=== PATIENT | female | born 1975 | race Caucasian/White ===

== ENCOUNTER 2021-08-19 11:22 | Emergency (ER) | payer OTHER ==
[~2021-08-19] VITALS: Ht 167.6 cm; Wt 81.7 kg
[~2021-08-19 11:22] MED LIST: APAP500; CAVAN-FOLATE D1 EACH PO; ESTRACE2 MG PO; HYDROCODON-ACE1 EAC7 PO; LEVOTHYROXIN0.137 M1 PO; LEVOTHYROXINE0.2 M1; LISINOPRIL10 MG; LISINOPRIL20 MG PO; OMEPRAZOLE 20 M20 M1 PO; PHENERGAN 25 MG25 M1 PO; PRILOSEC40 MG PO; PRINZIDE 20-121 EACH PO
[2021-08-19 12:39] LABS: ABSOLUTE NEUTROPHILS 2.3 thou/uL (1.4-8.2); BASOPHILS 0.2 % (0.0-2.0); EOSINOPHILS 2.5 % (0.0-3.0); HEMATOCRIT 38.1 % (37.0-47.0); HEMOGLOBIN 13.6 gm/dL (12.0-15.0); LYMPHOCYTES 45.3 % (24.0-44.0); MCH 30.9 pg (26.0-34.0); MCHC 35.6 g/dL (28.0-37.0); MCV 86.7 fL (80.0-100.0); MONOCYTES 8.6 % (1.0-8.0); PLATELET COUNT 339 thou/uL (150-400); POLYS 43.4 % (36.0-66.0); RDW 12.9 % (10.5-14.5); WBC 5.2 thou/uL (4.0-11.0)
[2021-08-19 12:42] LABS: URINE BILIRUBIN NEGATIVE (Negative); URINE BLOOD NEGATIVE (Negative); URINE CLARITY CLEAR; URINE COLOR YELLOW; URINE GLUCOSE-RANDOM* NEGATIVE (Negative); URINE KETONES NEGATIVE (Negative); URINE LEUKOCYTES-REFLEX NEGATIVE (Negative); URINE NITRITE-REFLEX NEGATIVE (Negative); URINE PROTEIN (DIPSTICK) NEGATIVE (Negative); URINE SPECIFIC GRAVITY >= 1.030 (1.005-1.035); URINE UROBILINOGEN 0.2 E.U./dl (0.2-1.0)
[2021-08-19 13:03] LABS: CALCIUM 8.8 mg/dL (8.5-10.1); CREATININE 0.9 mg/dL (0.6-1.0); POTASSIUM 3.6 mmol/L (3.5-5.1)
[2021-08-19 13:17] LABS: ALBUMIN 3.8 g/dL (3.4-5.0); TOTAL BILIRUBIN 1.6 mg/dL (0.2-1.0); TOTAL PROTEIN 7.4 g/dL (6.4-8.2)
[2021-08-19] MEDS ORDERED: ONDANSETRON ODT4 MG PO (14:33)
[2021-08-19] MEDS ORDERED: APAP W/CODEINE1 TA2 PO (14:33)
[2021-08-19 14:58] VITALS: BP 158/98
--- NOTE | 2021-08-20 13:39 | EKG ---
[address] [place] [address] ELECTROCARDIOGRAM REPORT Name: RONA CARRILLO Room #: DEP Khoa#: [id number] Admission: 08/19/21 Attend Phys: Discharge: 08/19/21 Date of : 75 Report #: [id number] [facility] ED Test Date: 2021-08-19 Test Time: 12:31:56 Pat Name: RONA CARRILLO Department: Room: Gender: Internal Medicine Nurse Practitioner: TYRONE : 1975 Requested By: Randi Archuleta Order Number: [id number] MD: Howard Espinoza Measurements Intervals [place] Rate: 76 P: 45 KS: 147 QRS: 35 QRSD: 101 T: 58 QT: 387 QTc: 436 Interpretive Statements Sinus rhythm Nonspecific ST segment abnormality Compared to ECG 09/27/2012 07:55:31 No significant changes Electronically Signed On 08-20-2021 13:39:12 CDT by Howard Espinoza [email or web address] <ELECTRONICALLY SIGNED> By: Howard Espinoza MD, [facility] 08/20/21 1339 1231 1231 Howard Espinoza MD, FACC /EPI
== END 2021-08-19 14:59 | disposition home or self-care (01) ==
LOC: ER 11:22
PROVIDERS: Physician Assistant
DX: R10.13 Epigastric pain (principal); K59.00 Constipation, unspecified; R11.2 Nausea with vomiting, unspecified; R19.7 Diarrhea, unspecified; Z90.710 Acquired absence of both cervix and uterus; I10 Essential (primary) hypertension; E03.9 Hypothyroidism, unspecified; Z98.890 Other specified postprocedural states; Z79.899 Other long term (current) drug therapy

== ENCOUNTER 2021-09-06 12:38 | Emergency (ER) | payer OTHER ==
[~2021-09-06] VITALS: Ht 167.6 cm; Wt 98.0 kg
[~2021-09-06 12:38] MED LIST changes: +APAP W/CODEINE1 TA2 PO; +ONDANSETRON ODT4 MG PO
[2021-09-06 15:15] VITALS: BP 155/87
== END 2021-09-06 15:15 | disposition home or self-care (01) ==
LOC: ER 12:38
DX: M79.602 Pain in left arm (principal); I10 Essential (primary) hypertension; E03.9 Hypothyroidism, unspecified; F17.210 Nicotine dependence, cigarettes, uncomplicated; Z90.710 Acquired absence of both cervix and uterus; Z98.890 Other specified postprocedural states; Z79.891 Long term (current) use of opiate analgesic; Z79.1 Long term (current) use of non-steroidal anti-inflammatories (NSAID); Z79.899 Other long term (current) drug therapy